=== PATIENT | male | born 1970 | race Caucasian/White ===

== ENCOUNTER 2017-07-22 00:19 | Emergency (ER) | payer MEDICARE, OTHER ==
[2017-07-22 00:53] LABS: BASOPHIL 0.2 % (0-2); EOSINOPHIL 1.8 % (0-5); HCT 23.3 % (42.0-52.0); HGB 7.8 g/dl (13.2-18.0); LYMPHOCYTE 13.6 % (15-48); MCH 32.5 pg (25.0-31.0); MCHC 33.5 g/dL (32.0-36.0); MCV 97.1 fL (78.0-100.0); MONOCYTE 5.5 % (0-12); MPV 9.3 fL (6.0-9.5); NEUTROPHIL 78.9 % (41-80); PLT 221 K/uL (150-400); RDW 14.7 % (11.5-14.0); WBC 13.6 K/uL (4.0-10.5)
[2017-07-22 01:11] LABS: ALBUMIN 3.7 g/dL (3.5-5.0); BILIRUBIN - TOTAL 0.2 mg/dL (0.1-1.0); CREATININE 1.3 mg/dL (0.7-1.2); GLOBULIN (CALCULATION) 2.1 g/dL (2.2-4.2); POTASSIUM 3.7 mmol/L (3.5-5.1); TOTAL PROTEIN 5.8 g/dL (6.4-8.3)
[2017-07-22 01:12] LABS: ACETAMINOPHEN (TYLENOL) < 5.0 ug/mL (10.0-30.0); ALCOHOL (ETOH) MEDICAL NONE DETECTED; SALICYLATE < 6 ug/mL (0-300)
== END 2017-07-22 04:34 | disposition home or self-care (01) ==
LOC: FER 00:19
PROVIDERS: Emergency Medicine Emergency Medical Services
DX: S51.811A Laceration without foreign body of right forearm, initial encounter (principal); F17.200 Nicotine dependence, unspecified, uncomplicated; E11.9 Type 2 diabetes mellitus without complications; Z88.6 Allergy status to analgesic agent; Z79.899 Other long term (current) drug therapy; W25.XXXA Contact with sharp glass, initial encounter; Y92.009 Unspecified place in unspecified non-institutional (private) residence as the place of occurrence of the external cause
CPT/HCPCS: 36415; 73090; 80053; 85025; 90715; 93005; G0480; J2270; J2405

== ENCOUNTER 2021-07-05 09:49 | Emergency (ER) | payer MEDICARE, OTHER ==
[~2021-07-05 09:49] MED LIST: ACETAMINOPHEN500 M1 PO
== END 2021-07-05 10:50 ==
LOC: FER 09:49
DX: T63.441A Toxic effect of venom of bees, accidental (unintentional), initial encounter (principal); F15.10 Other stimulant abuse, uncomplicated; F17.210 Nicotine dependence, cigarettes, uncomplicated; Z88.6 Allergy status to analgesic agent
CPT/HCPCS: J1200; Q0169